=== PATIENT | female | born 1970 | race Caucasian/White ===

== ENCOUNTER 2019-11-28 12:24 | Outpatient (CLI) | payer MEDICARE, SELFPAY ==
--- NOTE | ~2019-11-28 | MMUS_ITS ---
EXAMINATION: MM diagnostic pauly LT w victor manuel, US breast LT limited HISTORY: Patient with left breast and axilla pain, history of left breast cancer TECHNIQUE: Craniocaudal, mediolateral, and mediolateral oblique 3-D tomosynthesis images of the left breast were performed and synthetic 2-D images were generated. CAD analysis was submitted and interpr eted. High resolution limited left breast ultrasound was performed. COMPARISON: 06/27/2019, 08/31/2017, 04/06/2017, 08/25/2016 BREAST PARENCHYMAL COMPOSITION: There are scattered areas of fibroglandular density. FINDINGS: MAMMOGRAPHIC FINDINGS: There are stable lumpectomy changes in the upper outer quadrant of the left breast. There is no evide nce of suspicious mass, calcification, or architectural distortion to suggest malignancy. There has been no suspicious interval change. ULTRASOUND: There is no evidence of focal abnormal solid or cystic lesion in the vicinity of the patient's report ed breast pain. Expected sonographic appearance of the scar is seen at the site of lumpectomy. No blayne picious abnormality is identified in the axilla. IMPRESSION: 1. No specific mammographic or sonographic correlate is identified for the patient's reported breast and axilla pain Further evaluation at this time should be based on clinical assessment. Continued fol low-up physical examination is recommended. 2. Routine screening mammography is recommended. BI-RADS Category 2: Benign finding(s). Reviewed, dictated and finalized at location A. IMPRESSION: 1. No specific mammographic or sonographic correlate is identified for the veronika ent's reported breast and axilla pain Further evaluation at this time should be based on clinical assessment. Continued follow-up physical examination is yumiko mmended. 2. Routine screening mammography is recommended. BI-RADS Category 2: Benign finding(s).
== END 2019-11-28 12:25 | disposition home or self-care (01) ==
LOC: ANHIMG 12:32
PROVIDERS: PCP Family Medicine
DX: N64.4 Mastodynia (principal)
CPT/HCPCS: 76642; 77061; 77065; G0279

== ENCOUNTER 2020-03-09 13:39 | Outpatient (CLI) | payer MEDICARE, SELFPAY ==
[2020-03-09 14:27] LABS: Eosinophils Percent Auto 0.5 % (0-4.4); Hematocrit 40.3 % (37.0-47.0); Hemoglobin 12.7 g/dL (12.0-15.0); Immature Granulocyte Absolute 0.01 K/mm3 (0.00-0.031); Immature Granulocyte Percent A 0.3 % (0-0.5); Lymphocytes Absolute Auto 1.39 K/mm3 (0.9-3.2); Lymphocytes Percent Auto 34.8 % (18.3-44.2); Mean Corpuscular HGB Conc 31.5 g/dl (32-36); Mean Corpuscular Volume 95.3 fl (80-100); Mean Platelet Volume 10.5 fl (7.4-10.4); Monocytes Absolute Auto 0.3 K/mm3 (0.1-0.6); Monocytes Percent Auto 6.8 % (2.6-8.5); Neutrophils Absolute Auto 2.3 K/mm3 (1.3-6.7); Neutrophils Percent Auto 56.6 % (45.5-73.1); Platelet Count Result 273 k/mm3 (150-375); Red Blood Count 4.23 M/mm3 (4.2-5.4); Red Cell Distribution Width 14.2 % (11.5-14.5)
[2020-03-09 14:43] LABS: Alanine Aminotransferase 16 U/L (4-35); Albumin Level 3.8 g/dL (3.5-5.1); Alkaline Phosphatase 180 U/L (38-126); Anion Gap 11 mmol/L (8-16); Aspartate Amino Transferase 25 U/L (14-36); Bilirubin,Total 0.5 mg/dL (0.2-1.3); Blood Urea Nitrogen 14 mg/dL (7-17); Calcium 9.8 mg/dL (8.4-10.2); Carbon Dioxide 22 mmol/L (22-30); Chloride 108 mmol/L (98-107); Estimated Glomerular Filt Rate > 60; Glucose 75 mg/dL (65-105); Potassium 3.9 mmol/L (3.4-5.0); Sodium 141 mmol/L (137-145)
== END 2020-03-09 13:40 | disposition home or self-care (01) ==
LOC: ANHLAB 13:50
PROVIDERS: PCP Family Medicine; Visit Provider Physician Assistant
DX: Z01.818 Encounter for other preprocedural examination (principal); M21.611 Bunion of right foot; D64.9 Anemia, unspecified
CPT/HCPCS: 36415; 80053; 84443; 85025

== ENCOUNTER 2020-07-23 15:24 | Outpatient (CLI) | payer MEDICARE, SELFPAY ==
--- NOTE | ~2020-07-23 | MM_ITS ---
EXAMINATION: MM screening pauly BI w victor manuel HISTORY: Screening mammogram TECHNIQUE: Craniocaudal and mediolateral oblique 3-D tomosynthesis images were obtained and synthetic 2-D images were generated. CAD analysis was submitted and interpreted. COMPARISON: 11/28/2019 diagnostic left digital mammogram and limited left breast ultrasound 06/27/2019, 08/31/2017 bilateral digital screening mammogram BREAST PARENCHYMAL COMPOSITION: There are scattered areas of fibroglandular density. FINDINGS: Postsurgical change of the left breast partial mastectomy for breast cancer, including surg ical clips posteriorly in the upper outer quadrant of the left breast and left axillary node clips. T here is associated volume loss of the left breast compared to the right. These findings appear stable since 06/27/2019 08/31/2017. Otherwise there is no evidence of suspicious mass, calcification, or architectural distortion to sugg est malignancy in either breast. There has been no suspicious interval change. IMPRESSION: 1. No mammographic evidence of malignancy. 2. Recommend routine screening mammography in one year. BI-RADS Category 2: Benign finding(s). Reviewed, dictated and finalized at location A. ACE HAND
== END 2020-07-23 15:25 | disposition home or self-care (01) ==
LOC: ANHIMG 15:32
PROVIDERS: Family Provider Psychiatry & Neurology Neurology
DX: Z12.31 Encounter for screening mammogram for malignant neoplasm of breast (principal)
CPT/HCPCS: 77063; 77067

== ENCOUNTER 2020-09-09 14:58 | Outpatient (CLI) | payer MEDICARE, SELFPAY ==
--- NOTE | ~2020-09-09 | XR_ITS ---
XR knee RT min 4V 09/09/2020 15:21 Indication: Right knee pain Procedure: 4 views right knee Comparison: No prior studies for comparison. Findings: No fracture, subluxation or dislocation. There is anatomic alignment. No significant joint space narrowing. No joint effusion. No radiopaque foreign bodies. Impression: 1: No significant bone or joint abnormality Reviewed, dictated and finalized at location B. Impression: 1: No significant bone or joint abnormality
== END 2020-09-09 14:59 | disposition home or self-care (01) ==
PROVIDERS: PCP Physician Assistant; Visit Provider Physician Assistant
DX: M25.561 Pain in right knee (principal)
CPT/HCPCS: 73564

== ENCOUNTER → 2020-11-06 03:13 | Outpatient (CLI) | payer MEDICARE, SELFPAY ==
[2020-11-06 19:46] LABS: SARS-CoV-2 RNA PCR Negative
== END ==
PROVIDERS: PCP Physician Assistant; Visit Provider Internal Medicine Gastroenterology
DX: Z01.812 Encounter for preprocedural laboratory examination (principal); Z20.822 Contact with and (suspected) exposure to COVID-19
CPT/HCPCS: C9803; U0003; U0005

== ENCOUNTER 2020-11-10 01:23 | Day surgery (SDC) | payer MEDICARE, SELFPAY ==
[2020-11-04 09:54] VITALS: BMI 31.4
[2020-11-10 07:11] VITALS: BP 112/74; PULSE 68; RESP 16; TEMP 36.6; O2SAT 100
[2020-11-10] MEDS: LACTATED RINGERS 1,000 ML 150 ML IV CONT (07:28)
--- NOTE | 2020-11-10 07:49 | WPDANESEPPF ---
Anes - Initial Pre Proc Eval Procedure: Operation Date: 11/10/20 08:00 Proposed Procedures p Screening Colonoscopy - Jin Michael MD Date/Time: 11/10/20 07:49 Surgeon: Jin Michael MD Pre Op Diagnosis: neoplasm screening Patient Data Age: 50 Gender: F Height: 5 ft 2 in Weight: 75.3 kg Last Vital Signs Temp 97.8 F 11/10/20 07:11 Pulse 68 11/10/20 07:11 Resp 16 11/10/20 07:11 BP 112/74 11/10/20 07:11 Pulse Ox 100 11/10/20 07:11 Allergies Allergy/AdvReac Type Severity Reaction Status Date / Time sulfamethoxazole Allergy Severe Dyspnea / Verified 11/10/20 07:09 SOB trimethoprim Allergy Severe Dyspnea / Verified 11/10/20 07:09 SOB cephalexin Allergy Unknown Gastritis Verified 11/10/20 07:09 erythromycin base Allergy Unknown Facial Verified 11/10/20 07:09 swelling nitrofurantoin Allergy Unknown Unknown Verified 11/10/20 07:09 Sulfa (Sulfonamide Allergy Unknown Vomiting Verified 11/10/20 07:09 Antibiotics) NITROFURANTOIN MACROCRYSTAL Allergy Mild RASH Uncoded 11/10/20 07:09 Home Medications Medication Instructions Recorded Confirmed Type pregabalin 150 mg capsule 150 mg PO TID 06/13/19 11/04/20 History oxycodone-acetaminophen 10 mg-325 1 tablet PO Q4-6H PRN #150 tablet 06/30/19 11/04/20 Rx mg tablet omeprazole 40 mg capsule,delayed 40 mg PO DAILY #90 cap 12/08/19 11/04/20 Rx release acyclovir 400 mg tablet 400 mg PO DAILY #90 tablet 01/06/20 11/04/20 Rx fluoxetine 20 mg capsule 40 mg PO DAILY 03/08/20 11/04/20 History ospemifene 60 mg tablet 60 mg PO DAILY 03/08/20 11/04/20 History progesterone micronized 100 mg 100 mg PO QAM 03/08/20 11/04/20 History capsule ropinirole 0.25 mg PO DAILY 11/04/20 11/04/20 History Patient hx anesthesia problems: none Family hx anesthesia problems: none PMFSH Past Medical History Medical History (Updated 09/09/20 @ 18:07 by Karthik Major PA-C) Breast cancer delivery delivered Chronic low back pain with bilateral sciatica Chronic neuropathic pain Chronic pain syndrome Surgical History Surgical History Bariatric surgery status Gastric bypass status for obesity H/O prior ablation treatment History of cholecystectomy History of lumpectomy History of tonsillectomy Family History Family History Grandparent Diabetes mellitus Carcinoma of colon Mother Hypertension Social History Social History Years smoked: 10 Smoking status: Former smoker Tobacco type: cigarettes Second hand tobacco smoke exposure: No Smoking end date: 06/11/08 Alcohol intake: current Alcohol use details: socially Substance use: never Substance use type: does not use Living arrangements: with family Additional occupation/education comments: Disability working only parts consultant. Gender identity (if verbalized by the patient): Female Spiritual care concerns: No Anes - Eval Final PreProcedure Day of Procedure 11/10/20 07:49 Patient weight: obese Heart: regular rate and rhythm Lungs: clear to auscultation Airway: Mallampati scale class II Neurological: alert and oriented Last oral intake: >/= 8 hours ASA classification: III Emergent: no Anesthetic plan: proceed Anesthesia type and monitoring: general GIVS and standard monitoring Informed Consent: The patient's anesthetic plan and its attendant risks and benefits were discussed with the patient/family/POA. Questions were solicited and answers provided to the satisfaction of the patient/family/POA.
--- NOTE | 2020-11-10 07:51 | PM.HPGS ---
History of Present Illness History of Present Illness Consent: Risks, benefits, and alternatives have been discussed and questions answered. Patient agrees to proceed with procedure. Chief complaint: neoplasm screening Narrative: Oralia Capellan is a 50 year old female with screening colonoscopy, last one 5 years (both maternal grandparents with CRC) Review of Systems Constitutional: Constitutional: Denies headache(s) and Denies weakness Eyes: Eyes: Denies blurry vision ENT: Reports Normal hearing present, Denies headache(s) and Denies neck pain Cardiovascular: Cardiovascular: Denies chest pain and Denies dyspnea Respiratory: Respiratory: Denies dyspnea Gastrointestinal: Gastrointestinal: Reports no additional gastrointestinal complaints Genitourinary: Genitourinary: Denies dysuria Musculoskeletal: Musculoskeletal: Denies neck pain Integumentary/Breasts: Skin/Breast: Denies dry skin Neurologic: Reports Normal hearing present, Denies headache(s) and Denies weakness Psychiatric: Psychiatric: Denies anxiety Endocrine: Endocrine: Denies change in body appearance Hematologic/Lymphatic: Hematologic/Lymphatic: Denies easy bleeding Allergic/Immunologic: Allergic/Immunologic: Denies urticaria PMFSH Past Medical History Medical History (Updated 09/09/20 @ 18:07 by Karthik Major PA-C) Breast cancer delivery delivered Chronic low back pain with bilateral sciatica Chronic neuropathic pain Chronic pain syndrome Surgical History Surgical History Bariatric surgery status Gastric bypass status for obesity H/O prior ablation treatment History of cholecystectomy History of lumpectomy History of tonsillectomy Family History Family History Grandparent Diabetes mellitus Carcinoma of colon Mother Hypertension Social History Social History Years smoked: 10 Smoking status: Former smoker Tobacco type: cigarettes Second hand tobacco smoke exposure: No Smoking end date: 06/11/08 Alcohol intake: current Alcohol use details: socially Substance use: never Substance use type: does not use Living arrangements: with family Additional occupation/education comments: 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 Gender identity (if verbalized by the patient): Female Spiritual care concerns: No Meds Home Medications and Allergies Home Medications Medication Instructions Recorded Confirmed Type pregabalin 150 mg capsule 150 mg PO TID 06/13/19 11/04/20 History oxycodone-acetaminophen 10 mg-325 1 tablet PO Q4-6H PRN #150 tablet 06/30/19 11/04/20 Rx mg tablet omeprazole 40 mg capsule,delayed 40 mg PO DAILY #90 cap 12/08/19 11/04/20 Rx release acyclovir 400 mg tablet 400 mg PO DAILY #90 tablet 01/06/20 11/04/20 Rx fluoxetine 20 mg capsule 40 mg PO DAILY 03/08/20 11/04/20 History ospemifene 60 mg tablet 60 mg PO DAILY 03/08/20 11/04/20 History progesterone micronized 100 mg 100 mg PO QAM 03/08/20 11/04/20 History capsule ropinirole 0.25 mg PO DAILY 11/04/20 11/04/20 History Allergies Allergy/AdvReac Type Severity Reaction Status Date / Time sulfamethoxazole Allergy Severe Dyspnea / Verified 11/10/20 07:09 SOB trimethoprim Allergy Severe Dyspnea / Verified 11/10/20 07:09 SOB cephalexin Allergy Unknown Gastritis Verified 11/10/20 07:09 erythromycin base Allergy Unknown Facial Verified 11/10/20 07:09 swelling nitrofurantoin Allergy Unknown Unknown Verified 11/10/20 07:09 Sulfa (Sulfonamide Allergy Unknown Vomiting Verified 11/10/20 07:09 Antibiotics) NITROFURANTOIN MACROCRYSTAL Allergy Mild RASH Uncoded 11/10/20 07:09 Vital Signs Vital Signs - 24 hr 11/10/20 07:11 Temperature 97.8 F Pulse Rate 68 Respiratory Rate 16 Blood Pressure 112/74 Pulse Oximetry 100 Exam Con
[2020-11-10 08:13] VITALS: BP 71/46; PULSE 70; RESP 20; O2SAT 100
[2020-11-10 08:23] VITALS: BP 79/53; PULSE 72; RESP 21; O2SAT 100
== END 2020-11-10 09:00 | disposition home or self-care (01) ==
PROVIDERS: PCP Physician Assistant; Visit Provider Internal Medicine Gastroenterology
PROC: 0DJD8ZZ Inspection of Lower Intestinal Tract, Via Natural or Artificial Opening Endoscopic (ICD-10-PCS; CPT 45378; principal; 2020-11-10 08:00)
DX: Z12.11 Encounter for screening for malignant neoplasm of colon (principal); D12.3 Benign neoplasm of transverse colon; K57.30 Diverticulosis of large intestine without perforation or abscess without bleeding; K64.8 Other hemorrhoids; Z80.0 Family history of malignant neoplasm of digestive organs; G89.4 Chronic pain syndrome; Z79.891 Long term (current) use of opiate analgesic; Z98.84 Bariatric surgery status; Z87.891 Personal history of nicotine dependence; E66.9 Obesity, unspecified; Z68.30 Body mass index [BMI] 30.0-30.9, adult
CPT/HCPCS: 45385; 88305; C9803; J2704; J7120; U0003; U0005